=== PATIENT | male | born 1985 ===

== ENCOUNTER 2023-11-21 03:50 | Day surgery (SDC) | payer OTHER ==
[2023-11-18 15:38] VITALS: BMI 25.1
[2023-11-21] MEDS ORDERED: BUPIVACAINE HCL/PF 0.5% (5MG/ML) 10 ML VIAL ONE (10:58)
[2023-11-21] MEDS ORDERED: LIDOCAINE 1%/EPI 1:100000 (20 ML MULTI DOSE VIAL) ONE (10:58)
[2023-11-21] MEDS ORDERED: PROPOFOL 40 ML ONE (11:17)
[2023-11-21] MEDS ORDERED: MIDAZOLAM HCL 2 MG/2 ML SINGLE DOSE VIAL ONE (11:18)
[2023-11-21] MEDS ORDERED: SUCCINYLCHOLINE CHLORIDE 200 MG/10 ML SYRINGE ONE (11:18)
[2023-11-21] MEDS: ceFAZolin SODIUM 1 GM VIAL IVPB ONE ×2 (11:50→12:02)
[2023-11-21] MEDS: BUPIVACAINE HCL/PF 0.5% (5 MG/ML) 30 ML VIAL IJ ONE (12:16)
[2023-11-21] MEDS: LIDOCAINE 1%/EPI 1:100000 (50 ML MULTI DOSE VIAL) INF ONE (12:16)
[2023-11-21] MEDS ORDERED: PROPOFOL 20 ML ONE (12:46)
[2023-11-21] MEDS ORDERED: oxyCODONE HCL 5 MG TABLET PO PRN (13:38)
[2023-11-21] MEDS ORDERED: ONDANSETRON 4 MG/2 ML VIAL IVPUSH PRN (13:38)
[2023-11-21] MEDS ORDERED: LACTATED RINGERS SOLUTION 1,000 ML IV SCH (13:45)
[2023-11-21] MEDS ORDERED: ACETAMINOPHEN INJECTION 100 ML IVPB ONE (14:29)
[2023-11-21] MEDS: ACETAMINOPHEN 1000 MG/100 ML BAG IVPB ONE (14:30)
[2023-11-21] MEDS: LACTATED RINGERS SOLUTION 1,000 ML IV SCH (16:10)
[2023-11-21 16:20] VITALS: RESP 18; TEMP 97.8
[2023-11-21 18:07] VITALS: BP 111/68; PULSE 88
== END 2023-11-21 18:49 | disposition home or self-care (01) ==
LOC: JASU-SURG 03:50
PROVIDERS: ATTEND Surgery
PROC: 0GBH0ZX Excision of Right Thyroid Gland Lobe, Open Approach, Diagnostic (ICD-10-PCS; principal; 2023-11-21 12:00)
DX: E04.1 Nontoxic single thyroid nodule (principal)
CPT/HCPCS: 94760; J0131